=== PATIENT | female | born 1970 ===

== ENCOUNTER 2022-12-22 10:44 | Day surgery (SDC) | payer OTHER ==
[~2022-12-22] VITALS: Ht 160 cm; Wt 97.9 kg
[~2022-12-22 10:44] MED LIST: LOSARTAN POTAS100 M1 PO; TRAM50 PO; Voltaren100 GM TOP
[2022-12-22 13:26] VITALS: BP 104/72
== END 2022-12-22 13:15 | disposition home or self-care (01) ==
LOC: ORSCSDS 10:44
PROVIDERS: Specialist
PROC: 0DBL8ZX Excision of Transverse Colon, Via Natural or Artificial Opening Endoscopic, Diagnostic (ICD-10-PCS; 2022-12-22)
PROC: 0DBN8ZX Excision of Sigmoid Colon, Via Natural or Artificial Opening Endoscopic, Diagnostic (ICD-10-PCS; principal; 2022-12-22 12:30)
DX: K62.5 Hemorrhage of anus and rectum (principal); R10.32 Left lower quadrant pain; D12.3 Benign neoplasm of transverse colon; D12.5 Benign neoplasm of sigmoid colon; K64.4 Residual hemorrhoidal skin tags; K64.8 Other hemorrhoids; I10 Essential (primary) hypertension; Z68.39 Body mass index [BMI] 39.0-39.9, adult; Z79.899 Other long term (current) drug therapy
CPT/HCPCS: 88305; J2704; J7120